=== PATIENT | female | born 1975 | race Caucasian/White ===

== ENCOUNTER → 2016-12-02 | Outpatient (CLI) | payer BC, OTHER ==
[~2016-12-02] MED LIST: ALBU1AER9 INH; AZITTAB PO; ERGO500037 PO; MULT-506 PO; VNTHFA/IN INH
[2016-12-06 17:38] LABS: ENDOMYSIAL IGA AB TC 15064 Negative (Negative); GLIADIN DEAMIDATED IgA AB 6 UNITS (<20); GLIADIN DEAMIDATED IgG AB 3 UNITS (<20); VITAMIN A** TC 921X 32 mcg/dL (38-98)
== END | disposition home or self-care (01) ==
LOC: C.LAB 17:01
DX: K90.9 Intestinal malabsorption, unspecified (principal)

== ENCOUNTER → 2017-03-24 | Outpatient (CLI) | payer BC, OTHER ==
[~2017-03-24] MED LIST changes: +PRED20TA2 PO
[2017-03-24 10:55] LABS: FERRITIN 185.6 ng/ml (8.0-388.0)
== END | disposition home or self-care (01) ==
LOC: C.LAB 09:09
DX: E61.1 Iron deficiency (principal); E55.9 Vitamin D deficiency, unspecified

== ENCOUNTER 2017-04-02 05:55 | Emergency (ER) | payer BC, OTHER ==
[~2017-04-02] VITALS: Ht 171.5 cm; Wt 99.0 kg
[~2017-04-02 05:55] MED LIST changes: -AZITTAB PO; -ERGO500037 PO; -MULT-506 PO; -PRED20TA2 PO; -VNTHFA/IN INH
[2017-04-02 06:06] VITALS: Ht 171.5 cm; Wt 99.0 kg
[2017-04-02 06:48] VITALS: TEMP 37.4
[2017-04-02] MEDS ORDERED: MULT-506 PO (06:48)
[2017-04-02 07:04] LABS: BASO % 0.2 %; BASO ABS # 0.02 K/uL (0-0.2); COMPLETE YES; EOS % 1.2 %; HEMATOCRIT 41.1 % (37-47); IG% 0.1 %; LYMPH % 14.9 %; LYMPH ABS # 1.31 K/uL (1.2-3.4); MEAN CELL VOLUME 87.6 fL (80-100); MEAN CORPUSCULAR HGB CONC 33.1 g/dl (32-36); MEAN PLATELET VOLUME 10.7 fL (7.4-10.4); NEUT % 74.6 %; PLATELET COUNT 167 K/uL (130-400); RED BLOOD COUNT 4.69 M/uL (4.2-5.4); WHITE BLOOD COUNT 8.81 K/uL (4.8-10.8)
--- NOTE | 2017-04-02 07:18 | DIAGNOSTIC IMAGING REPORT ---
CHEST ONE VIEW PORTABLE CLINICAL HISTORY: Productive cough and chills. COMPARISON STUDY: Chest radiograph April 16, 2006. FINDINGS: Lung volumes are normal. There is band like left lower lung opacity. Right lung is clear. Cardiac size is normal. Mediastinal contours are normal. There is no evidence of pulmonary edema. There is a possible left mid thoracic paraspinal contour abnormality. IMPRESSION: Left lower lung airspace opacity which favors pneumonia given the clinical history. Equivocal paraspinal contour abnormality likely reflects normal structures. Post treatment PA and lateral radiographs to ensure resolution of the airspace opacity and to reassess the paraspinal contours are recommended. Electronically signed by: Noe Hall M.D. 04/02/2017 7:17 AM Dictated Date/Time: 04/02/2017 7:11 AM
[2017-04-02 07:31] LABS: ALB/GLOB RATIO 0.8 (0.9-2); BUN/CREATININE RATIO 14.5 (10-20); CALCIUM 8.5 mg/dl (8.5-10.1); CREATININE 0.72 mg/dl (0.60-1.20); POTASSIUM 3.9 mmol/L (3.5-5.1)
[2017-04-02] MEDS ORDERED: AZITTAB PO (07:51)
--- NOTE | 2017-04-02 07:51 | EMERGENCY ROOM VISIT NOTE ---
History Report prepared by John Paul: Denisha Witt Under the Supervision of: Dr. Joe Denton D.O. First contact with patient: 06:51 Chief Complaint: ILLNESS Stated Complaint: UPPER RESPIRATORY History of Present Illness The patient is a 42 year old female who presents to the Emergency Room with complaints of a constant worsening illness beginning 4 days ago. The patient states that no one around her has been sick but she has been dealing with upper respiratory issues for the last 4 days. She complains of a cough, achiness, productive cough, ear ache, nausea, runny nose, decreased appetite, and fever though she has not checked it. She denies any vomiting. The patient notes that no one around her has been sick. Source of History: patient Onset: 4 days ago Position: other (upper respiratory) Quality: other (illness) Timing: constant, worsening Associated Symptoms: + cough, + fevers, + nausea, No vomiting Note: She complains of a achiness, ear ache, runny nose, decreased appetite. Review of Systems See HPI for pertinent positives & negatives. A total of 10 systems reviewed and were otherwise negative. Past Medical & Surgical Medical Problems: (1) Asthma (2) Kidney stones (3) Vaginal delivery Family History FH: cancer FH: diabetes mellitus FH: hypertension FH: lung disease Social History Smoking Status: Never Smoker Alcohol Use: none Marital Status: Housing Status: lives with family Occupation Status: unemployed Current/Historical Medications Scheduled Ergocalciferol (Vitamin D 46475 Unit), 50,000 UNIT PO WK Multivitamin (Multivitamin), 1 TAB PO DAILY Scheduled PRN Albuterol Hfa (Ventolin Hfa), 2 PUFFS INH Q6H PRN for SOB/Wheezing Allergies Coded Allergies: Shellfish (Unverified Allergy, Unknown, RASH, 04/02/17) STOMACH CRAMPS VOMITING Physical Exam Vital Signs Date Time Temp Pulse Resp B/P Pulse Ox O2 Delivery O2 Flow Rate FiO2 04/02/17 06:57 86 04/02/17 06:48 37.4 87 17 94 Room Air 04/02/17 06:06 37.4 106 22 121/73 94 Room Air Physical Exam CONSTITUTIONAL/VITAL SIGNS: Reviewed / noted above. GENERAL: Non-toxic in appearance. INTEGUMENTARY: Warm, dry, and [place]. HEAD: Normocephalic. EYES: without scleral icterus or trauma. ENT/OROPHARYNX: clear and moist. LYMPHADENOPATHY/NECK: Is supple without lymphadenopathy or meningismus. RESPIRATORY: Lungs clear and equal. CARDIOVASCULAR: Regular rate and rhythm. GI/ABDOMEN: Soft and nontender. No organomegaly or pulsatile mass. No rebound or guarding. Normal bowel sounds. EXTREMITIES: Warm and well perfused. BACK: No CVA tenderness. NEUROLOGICAL: Intact without focal deficits. PSYCHIATRIC: normal affect. MUSCULOSKELETAL: Normally developed with good muscle tone. Medical Decision & Procedures ER Provider Diagnostic Interpretation: X ray results and stated below per my interpretation and radiology interpretation. CHEST ONE VIEW PORTABLE FINDINGS: Lung volumes are normal. There is band like left lower lung opacity. Right lung is clear. Cardiac size is normal. Mediastinal contours are normal. There is no evidence of pulmonary edema. There is a possible left mid thoracic paraspinal contour abnormality. IMPRESSION: Left lower lung airspace opacity which favors pneumonia given the clinical history. Equivocal paraspinal contour abnormality likely reflects normal structures. Post treatment PA and lateral radiographs to ensure resolution of the airspace opacity and to reassess the paraspinal contours are recommended. Electronically signed by: Noe Hall M.D. 04/02/2017 7:17 AM Dictated Date/Time: 04/02/2017 7:11 AM Laboratory Results 04/02/17 06:40 Red Blood Count 4.69, Mean Corpuscular Volume 87.6, Mean Corpuscular Hemoglobin 29.0, Mean Corpuscular Hemoglobin Concent 33.1, Mean Platelet Volume 10.7, Neutrophils (%) (Auto) 74.6, Lymphocytes (%) (Auto) 14.9, Monocytes (%) (Auto) 9.0, Eosinophils (%) (Auto) 1.2, Basophils (%) (Auto) 0.2, Neutrophils # (Auto) 6.57, Lymphocytes # (Auto) 1.31, Monocytes # (Auto) 0.79, Eosinophils # (Auto) 0.11, Basophils # (Auto) 0.02 04/02/17 06:40 Test 04/02/17 06:40 04/02/17 06:52 White Blood Count 8.81 K/uL (4.8-10.8) Red Blood Count 4.69 M/uL (4.2-5.4) Hemoglobin 13.6 g/dL (12.0-16.0) Hematocrit 41.1 % (37-47) Mean Corpuscular Volume 87.6 fL (80-100) Mean Corpuscular Hemoglobin 29.0 pg (25-34) Mean Corpuscular Hemoglobin Concent 33.1 g/dl (32-36) Platelet Count 167 K/uL (130-400) Mean Platelet Volume 10.7 fL (7.4-10.4) Neutrophils (%) (Auto) 74.6 % Lymphocytes (%) (Auto) 14.9 % Monocytes (%) (Auto) 9.0 % Eosinophils (%) (Auto) 1.2 % Basophils (%) (Auto) 0.2 % Neutrophils # (Auto) 6.57 K/uL (1.4-6.5) Lymphocytes # (Auto) 1.31 K/uL (1.2-3.4) Monocytes # (Auto) 0.79 K/uL (0.11-0.59) Eosinophils # (Auto) 0.11 K/uL (0-0.5) Basophils # (Auto) 0.02 K/uL (0-0.2) RDW Standard Deviation 44.3 fL (36.4-46.3) RDW Coefficient of Variation 13.8 % (11.5-14.5) Immature Granulocyte % (Auto) 0.1 % Immature Granulocyte # (Auto) 0.01 K/uL (0.00-0.02) Anion Gap 7.0 mmol/L (3-11) Est Creatinine Clear Calc Drug Dose 122.9 ml/min Estimated GFR () 118.9 Estimated GFR (Non- 102.6 BUN/Creatinine Ratio 14.5 (10-20) Calcium Level 8.5 mg/dl (8.5-10.1) Total Bilirubin 0.4 mg/dl (0.2-1) Aspartate Amino Transf (AST/SGOT) 24 U/L (15-37) Alanine Aminotransferase (ALT/SGPT) 39 U/L (12-78) Alkaline Phosphatase 69 U/L (45-117) Total Protein 7.9 gm/dl (6.4-8.2) Albumin 3.4 gm/dl (3.4-5.0) Globulin 4.5 gm/dl (2.5-4.0) Albumin/Globulin Ratio 0.8 (0.9-2) Chemistry Specimen Hemolysis Bedside Lactic Acid Venous 0.91 mmol/L (0.90-1.70) Laboratory results as stated above per my review. ED Course 0651: Previous medical records were reviewed. The patient was evaluated in room A12B. A complete history and physical examination was performed. 0747: On reevaluation, the patient is doing well. I discussed the results and findings with the patient. She verbalized agreement of the treatment plan. The patient was discharged home. Medical Decision Differential includes viral illness, influenza, streptococcal pharyngitis, meningitis, pneumonia, sinusitis, UTI, pyelonephritis, otitis media. This is a 42-year-old female who presents to the ED with a chief complaint of upper respiratory illness. She reports some chills subjectively. She also reports productive cough and earache and some nausea. Her symptoms started 4 days ago. She seems to be getting worse. Her physical exam reveals stable vital signs. White blood cell count was normal. Other blood work including chemistry panel, lactic acid level and hemoglobin were normal. Chest x-ray reveals a questionable left-sided infiltrate. Follow-up chest x-ray recommended after treatment. The patient was told the results. She is felt to be stable for discharge. Impression Primary Impression: Sinusitis Additional Impression: Pneumonia Scribe Attestation The scribe's documentation has been prepared under my direction and personally reviewed by me in its entirety. I confirm that the note above accurately reflects all work, treatment, procedures, and medical decision making performed by me. Departure Information Prescriptions Azithromycin (ZITHROMAX Z-LO) 250 Mg Tab 0 PO UD, #1 PKT 2 TABS DAY 1, THEN 1 TAB DAILY FOR 4 DAYS Prov: Joe Denton D.O. 04/02/17 Referrals Alok Qiu Jr,D.O. (PCP) Patient Instructions ED Sinusitis Abx Tx, My [facility] Additional Instructions Zithromax as prescribed. The radiologist feels that you might have a small left-sided pneumonia. He recommends follow-up chest x-ray in 1-2 weeks after symptoms resolve. Follow-up with your and 1-2 weeks for recheck. Return for severe worsening or new symptoms. Tylenol/Motrin as needed for symptoms. Problem Qualifiers
[2017-04-02 08:11] VITALS: BP 106/60; PULSE 96; O2SAT 94
[2017-10-07] MEDS ORDERED: ERGO500037 PO (06:48)
[2017-10-07] MEDS ORDERED: VNTHFA/IN INH (06:49)
== END 2017-04-02 08:13 | disposition home or self-care (01) ==
LOC: C.EDB 05:56 → C.EDA 08:13
DX: J01.90 Acute sinusitis, unspecified (principal); J18.9 Pneumonia, unspecified organism; R91.8 Other nonspecific abnormal finding of lung field; J45.909 Unspecified asthma, uncomplicated; Z87.442 Personal history of urinary calculi

== ENCOUNTER → 2017-09-12 | Outpatient (CLI) | payer BC, OTHER ==
[~2017-09-12] MED LIST changes: -ALBU1AER9 INH; +ERGO500037 PO; +MULT-506 PO; +VNTHFA/IN INH
[2017-09-12 12:22] LABS: BASO % 0.6 %; BASO ABS # 0.04 K/uL (0-0.2); COMPLETE YES; EOS % 3.3 %; HEMATOCRIT 42.8 % (37-47); IG% 0.1 %; LYMPH % 28.6 %; LYMPH ABS # 1.99 K/uL (1.2-3.4); MEAN CELL VOLUME 87.9 fL (80-100); MEAN CORPUSCULAR HEMOGLOBIN 29.4 pg (25-34); MEAN CORPUSCULAR HGB CONC 33.4 g/dl (32-36); MEAN PLATELET VOLUME 10.9 fL (7.4-10.4); MONO % 7.9 %; NEUT % 59.5 %; PLATELET COUNT 207 K/uL (130-400); RED BLOOD COUNT 4.87 M/uL (4.2-5.4); WHITE BLOOD COUNT 6.96 K/uL (4.8-10.8)
[2017-09-12 13:10] LABS: FERRITIN 332.2 ng/ml (8.0-388.0); MAGNESIUM 2.1 mg/dl (1.8-2.4); THYROID STIMULATING HORMONE 3.33 uIu/ml (0.300-4.500)
== END | disposition home or self-care (01) ==
LOC: C.LAB 10:48
DX: E61.1 Iron deficiency (principal); E03.9 Hypothyroidism, unspecified; E55.9 Vitamin D deficiency, unspecified

== ENCOUNTER 2017-10-07 21:08 | Emergency (ER) | payer BC, OTHER ==
[~2017-10-07] VITALS: Ht 170.2 cm; Wt 103.1 kg
[2017-10-07 21:21] VITALS: TEMP 37.2; Ht 170.2 cm; Wt 103.1 kg
[2017-10-07] MEDS ORDERED: PRED20TA2 PO (21:40)
--- NOTE | 2017-10-07 21:41 | EMERGENCY ROOM VISIT NOTE ---
History First contact with patient: 21:24 Chief Complaint: ALLERGIC REACTION Stated Complaint: RASH DUE TO MEDICATION Nursing Triage Summary: patient took day time night time OTC with tylenol and ten minutes after states she developed hives. on face and neck History of Present Illness The patient is a 42 year old female who presents to the Emergency Room with complaints of a possible allergic reaction. The patient states that she has had some sinus congestion and evening, she took an [id number] version of NyQuil which contained acetaminophen, Benadryl and Sudafed. She states that approximately 5-10 minutes afterward, she developed hives near her mouth, down her neck and into the left side of her chest. She states they seem to have improved slightly at this time. They were itchy initially. She does state that she has had some wheezing, but the patient has a history of asthma and states this is not unusual for her. She denies any difficulty breathing, difficulty swallowing, facial swelling, nausea or vomiting. She denies any history of allergic reactions to any of the components of this medication. She states that she has taken all of these in the past without difficulty. Review of Systems A complete 10 point review of systems was reviewed with the patient with pertinent positives and negatives as per history of present illness. All else were negative. Past Medical/Surgical History Medical Problems: (1) Asthma (2) Kidney stones (3) Vaginal delivery Family History FH: cancer FH: diabetes mellitus FH: hypertension FH: lung disease Social History Smoking Status: Never Smoker Alcohol Use: none Marital Status: Housing Status: lives with family Occupation Status: unemployed Current/Historical Medications Scheduled Ergocalciferol (Vitamin D 45389 Unit), 50,000 UNIT PO WK Prednisone (Prednisone Tab), 2 TAB PO DAILY Scheduled PRN Albuterol Hfa (Ventolin Hfa), 2 PUFFS INH Q6H PRN for SOB/Wheezing Physical Exam Vital Signs Date Time Temp Pulse Resp B/P (MAP) Pulse Ox O2 Delivery O2 Flow Rate FiO2 10/07/17 21:50 91 18 136/89 98 10/07/17 21:24 97 Room Air 10/07/17 21:21 37.2 88 20 148/92 97 Room Air Physical Exam VITALS: Vitals are noted on the nurse's note and reviewed by myself. Vital signs stable. GENERAL: This is a 42-year-old female, in no acute distress, nondiaphoretic, well-developed well-nourished. SKIN: There is an erythematous, raised rash to the left cheek, left side of the neck and left upper chest. EARS: External auditory canals clear, tympanic membranes pearly davidson without erythema or effusion bilaterally. EYES: Pupils equal round and reactive to light and accommodation. MOUTH: Mucous membranes moist. Airway patent. FACE: No facial edema. NECK: Supple without nuchal rigidity. No lymphadenopathy. HEART: Regular rate and rhythm without murmurs gallops or rubs. LUNGS: Expiratory wheezes throughout all lung wilkerson. No retractions or accessory muscle use. NEURO: Patient was alert and oriented to person place and time. Medical Decision & Procedures Medications Administered Medications (Trade) Dose Ordered Sig/Cathy Route Start Time Stop Time Status Last Admin Dose Admin Prednisone (PredniSONE TAB) 40 mg NOW STAT PO 10/07/17 21:38 10/07/17 21:39 DC 10/07/17 21:45 40 MG Medical Decision Differential diagnosis includes allergic reaction, anaphylaxis, urticaria, among others. The patient was evaluated as above. She presents with symptoms consistent with allergic reaction. There is no evidence of anaphylaxis on exam. She was given an oral dose of prednisone here and will be given a three-day course of this. She states that she has an inhaler at home and will use this for her wheezing. She will follow-up with her primary care provider as needed. I did encourage her not to take this medication the future. She should also be cautious with the separate components of the medication. She verbalized understanding of my assessment and treatment plan and was discharged home in good condition. Medication Reconcilliation Current Medication List: was personally reviewed by me Blood Pressure Screening Patient's blood pressure: Elevated blood pressure Blood pressure disposition: Elevated BP felt to be situational Impression Primary Impression: Allergic reaction Departure Information Dispostion Home / Self-Care Condition GOOD Prescriptions Prednisone (Prednisone Tab) 20 Mg Tab 2 TAB PO DAILY for 3 Days, #6 TAB Prov: Cherise Almazan .ELIEZER 10/07/17 Referrals No Doctor, Assigned (PCP) Patient Instructions My [facility] Additional Instructions You have been treated in the Emergency Department for an Allergic Reaction. You have been treated and monitored in the Emergency Department appropriately. You should take Benadryl (diphenhydramine) 25-50 mg orally every 4-6 hours until symptoms have completely resolved. You should take Zantac (ranitidine) 75 mg orally once daily until symptoms have completely resolved. You have been prescribed Prednisone 40 mg to be taken orally once a day for the next 3 days. This is an anti-inflammatory medicine to be used to help minimize your symptoms. You should take the COMPLETE course of the medication. You should avoid taking that medication any longer. You may want to avoid Sudafed or similar medications in the future as well. As with every Emergency Department visit, you should follow-up with your primary care provider in 2-3 days for reevaluation. Return to the Emergency Department if your current symptoms worsen despite treatment course outlined above, or if you develop any of the following symptoms : wheezing, tongue or face swelling, tightness in your throat, shortness of breath, or fainting. Problem Qualifiers Primary Impression: Allergic reaction Encounter type: initial encounter Qualified Codes: T78.40XA - Allergy, unspecified, initial encounter
[2017-10-07 21:50] VITALS: BP 136/89; PULSE 91; O2SAT 98
== END 2017-10-07 21:50 | disposition home or self-care (01) ==
LOC: C.EDB 21:09 → C.EDD 21:50
DX: T78.40XA Allergy, unspecified, initial encounter (principal); L50.9 Urticaria, unspecified; J45.909 Unspecified asthma, uncomplicated; Z79.899 Other long term (current) drug therapy; Z87.442 Personal history of urinary calculi; X58.XXXA Exposure to other specified factors, initial encounter; Z82.49 Family history of ischemic heart disease and other diseases of the circulatory system; Z83.3 Family history of diabetes mellitus; Z83.6 Family history of other diseases of the respiratory system

== ENCOUNTER → 2018-02-10 | Outpatient (CLI) | payer BC, OTHER ==
[~2018-02-10] MED LIST changes: -MULT-506 PO
== END | disposition home or self-care (01) ==
LOC: C.LAB 07:55
DX: E61.1 Iron deficiency (principal); E55.9 Vitamin D deficiency, unspecified; R53.83 Other fatigue; E78.5 Hyperlipidemia, unspecified; R73.9 Hyperglycemia, unspecified